=== PATIENT | male | born 1980 | race American Indian/Alaskan Native ===

== ENCOUNTER 2019-09-20 01:08 | Emergency (ER) | payer SELFPAY ==
[2019-09-20] MEDS ORDERED: IBUPROFEN 600 MG TAB PO ONE (03:15)
[2019-09-20] MEDS ORDERED: LIDOCAINE-MPF (1%) 10 MG/1 ML VIAL 5 ML INFILTRATI ONE ×2 (03:15→05:38)
[2019-09-20] MEDS ORDERED: ONDANSETRON 4 MG ODT TAB ONE (05:15)
[2019-09-20] MEDS ORDERED: ONDANSETRON 4 MG ODT TAB PO ONE (05:39)
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
[2019-09-20 07:10] VITALS: BP 136/78
== END 2019-09-20 07:12 | disposition home or self-care (01) ==
LOC: ED 01:08
DX: S61.412A Laceration without foreign body of left hand, initial encounter (principal); F17.200 Nicotine dependence, unspecified, uncomplicated; W45.8XXA Other foreign body or object entering through skin, initial encounter; Y93.89 Activity, other specified; Y92.89 Other specified places as the place of occurrence of the external cause; Y99.8 Other external cause status
CPT/HCPCS: Q0162

== ENCOUNTER 2019-10-06 15:59 | Emergency (ER) | payer SELFPAY ==
[2019-10-06 16:04] VITALS: BP 136/94
--- NOTE | 2019-10-06 16:14 | Emergency Department Report ---
Suture/Staple Removal - HPI Chief Complaint: Laceration/Recheck/Suture Stated Complaint: SUTURE REMOVAL Time Seen by Provider: 10/06/19 16:10 When Sutures or Jolene Placed: >14 Days Ago Wound Location: palm of left hand ED Review of Systems ROS: Stated complaint: SUTURE REMOVAL Other details as noted in HPI Comment: All other systems reviewed and negative Skin: other (healing wound to left palm ) ED Past Medical Hx - Social History Smoking Status: Current Every Day Smoker Substance Use Type: Alcohol - Medications Home Medications: Home Medications Medication Instructions Recorded Confirmed Last Taken Type Ibuprofen [Motrin] 600 mg PO Q8H PRN #24 tablet 09/20/19 Unknown Rx cephALEXin [Keflex] 500 mg PO Q8HR #30 cap 09/20/19 Unknown Rx traMADoL [Ultram] 50 mg PO Q6HR PRN #10 tablet 09/20/19 Unknown Rx Suture Removal Exam - Exam General: Vital signs noted. No distress. Alert and acting appropriately. healing laceration noted to left palm without erythema, warmth, or drainage. [address] Wound: No Pathologic Erythema, No Tenderness, No Drainage, No Pus, No Wound D ehiscence Other Systems: All other systems reviewed and are unremarkable. ED Course Vital Signs 10/06/19 16:03 Temperature 97.8 F Pulse Rate 75 Respiratory 16 Rate Blood Pressure 136/94 O2 Sat by Pulse 99 Oximetry ED Recheck MDM - Core Measures AMI Core Measures Followed: No - Differential Diagnosis Suture/Staple Removal - Medical Decision Making Pt here for suture removal. Sutures placed here in ED 09/20/18. He denies fever, pain, swelling, redness, or drainage. 12 sutures removed without difficulty. No signs or symptoms or infection. Discussed strict return precautions in detail [facility] pt who verbalizes understanding. Critical care attestation.: If time is entered above; I have spent that time in minutes in the direct care of this critically ill patient, excluding procedure time. ED Disposition Clinical Impression: Visit for suture removal Disposition: -01 TO HOME OR SELFCARE Is pt being admited?: No Condition: Stable Instructions: Suture Removal (ED) Referrals: DOMINGO LAWSON MD [Staff Physician] - 3-5 Days
== END 2019-10-06 17:00 | disposition home or self-care (01) ==
LOC: ED 15:59
DX: S61.412D Laceration without foreign body of left hand, subsequent encounter (principal); F17.200 Nicotine dependence, unspecified, uncomplicated; X58.XXXD Exposure to other specified factors, subsequent encounter